=== PATIENT | female | born 1940 | race Caucasian/White ===

== ENCOUNTER 2019-11-22 15:56 | Emergency (ER) | payer MEDICARE, BC ==
--- NOTE | 2019-11-22 16:04 | EDM.PDOC ---
<Dereck Celaya - Last Filed: 11/22/19 17:31> ED HPI GENERAL MEDICAL PROBLEM - General Chief Complaint: General Stated Complaint: FALL/RT SIDE PAIN Time Seen by Provider: 11/22/19 16:04 - History of Present Illness INITIAL COMMENTS - FREE TEXT/NARRATIVE: 79-year-old female, at home ambulated to the bathroom. When sitting down her high-rise adjustment on her stool slid causing her to fall off striking the right lower lateral rib margin on the bathtub. Laid on the floor until family arrived and assisted her up into her chair. She also complains of some mild foot discomfort in the right secondary of this event. She denies striking any other part of her body, no loss of consciousness, no dizziness. Denies any cough. Onset: Today, Sudden Location: Reports: Chest Quality: Reports: Burning, Sharp Right Lower Chest Pain Score (Numeric/FACES): 8 - Related Data Allergies Allergy/AdvReac Type Severity Reaction Status Date / Time ibuprofen [From Motrin] Allergy Cannot Verified 11/22/19 16:03 Remember Penicillins Allergy Cannot Verified 11/22/19 16:03 Remember Home Meds: Home Meds Acetaminophen 650 mg PO Q4H PRN 11/22/19 [History] Methotrexate 17.5 mg PO MO 11/22/19 [History] Oxybutynin Chloride [Oxybutynin Chloride ER] 10 mg PO DAILY 11/22/19 [History] amLODIPine Besylate [Norvasc] 5 mg PO DAILY 11/22/19 [History] Past Medical History Cardiovascular History: Reports: Hypertension Gastrointestinal History: Reports: Chronic Constipation, GERD Genitourinary History: Reports: Urinary Incontinence, Other (See Below) (Overactive bladder) Musculoskeletal History: Reports: RA - Past Surgical History Musculoskeletal Surgical History: Reports: ORIF (Right great toe) Other Musculoskeletal Surgeries/Procedures:: right great toe pinning - Past Imaging History Past Imaging History: Reports: Xray Social & Family History - Family History Family Medical History: Noncontributory ED ROS GENERAL - Review of Systems Review Of Systems: See Below Constitutional: Reports: No Symptoms HEENT: Reports: No Symptoms Respiratory: Reports: No Symptoms Cardiovascular: Reports: No Symptoms Endocrine: Reports: No Symptoms GI/Abdominal: Reports: Constipation : Reports: Frequency, Incontinence Musculoskeletal: Reports: Joint Pain Skin: Reports: No Symptoms Neurological: Reports: No Symptoms Psychiatric: Reports: No Symptoms Hematologic/Lymphatic: Reports: No Symptoms Immunologic: Reports: No Symptoms ED EXAM, GENERAL - Physical Exam Exam: See Below Free Text/Narrative:: Alert oriented, frail-appearing 79-year-old female. HEENT negative discharge or deformity. [place] moist mucous membranes. Neck is soft supple no lymphadenopathy. Thorax is diminished at the bases which is also noted to be guarding secondary of right rib discomfort to palpation of the lower rib margin on the right lateral region. No crackles are noted. Cardiac regular no murmur. Abdomen is soft bowel sounds are present. Trace edema to the right foot with tenderness over the fourth fifth metatarsal region. Left lower extremity is benign. In general there is significant rheumatoid arthritis changes with remodeling to the hands and toes. Departure - Departure Disposition: Home, Self-Care 01 Clinical Impression: Fracture of metatarsal of right foot, closed, Right rib fracture - Discharge Information Instructions: Metatarsal Fracture With Rehab-[facility] Referrals: Joyce Rader NP [Primary Care Provider] - Chema Nava DPM [Ordering Only Provider] - Forms: ED Department Discharge Additional Instructions: 1. Cam walker boot for metatarsal fractures. 2. Tylenol for any pain or discomfort. 3. Follow-up with Dr. Brandy LIN in 1 to 2 weeks. - Problem List & Annotations (1) Fracture of metatarsal bone of right foot SNOMED Code(s): 230926156, 669426009 Code(s): S92.301A - FRACTURE OF UNSP METATARSAL BONE(S), RIGHT FOOT, INIT Status: Acute Priority: High Current Visit: Yes Qualifiers: Encounter type: initial encounter Metatarsal bone: third Fracture type: closed Fracture alignment: nondisplaced Qualified Code(s): S92.334A - Nondisplaced fracture of third metatarsal bone, right foot, initial encounter for closed fracture (2) Rheumatoid arthritis SNOMED Code(s): 01968043 Code(s): M06.9 - RHEUMATOID ARTHRITIS, UNSPECIFIED Status: Chronic Priority: Medium Current Visit: Yes Qualifiers: Rheumatoid arthritis location: unspecified site (3) Ribs, multiple fractures SNOMED Code(s): 7754407 Code(s): S22.49XA - MULTIPLE FRACTURES OF RIBS, UNSP SIDE, INIT FOR CLOS FX Status: Acute Priority: High Current Visit: Yes Qualifiers: Encounter type: initial encounter Laterality: right (4) Fall in home SNOMED Code(s): 68616989 Code(s): W19.XXXA - UNSPECIFIED FALL, INITIAL ENCOUNTER; Y92.009 - UNSP PLACE IN UNSP NON-INSTITUT (PRIVATE) RESIDENCE PLACE Status: Acute Priority: Medium Current Visit: Yes Qualifiers: Encounter type: initial encounter Qualified Code(s): W19.XXXA - Unspecified fall, initial encounter; Y92.009 - Unspecified place in unspecified non- institutional (private) residence as the place of occurrence of the external cause (5) Pulmonary nodule 1 cm or greater in diameter SNOMED Code(s): 570041204 Code(s): R91.1 - SOLITARY PULMONARY NODULE Status: Acute Priority: High Current Visit: Yes Annotation/Comment:: Recommended CT follow-up, noncontrast, further evaluation. <Casey Crain - Last Filed: 11/22/19 18:26> ED HPI GENERAL MEDICAL PROBLEM - General Source of Information: Reports: Patient History Limitations: Reports: No Limitations - History of Present Illness Onset: Today, Sudden Duration: Minutes: Location: Reports: Chest, Lower Extremity, Right Quality: Reports: Burning, Sharp Worsens with: Reports: Movement Context: Reports: Trauma (fall in bathroom) Associated Symptoms: Reports: No Other Symptoms ED EXAM, GENERAL - Physical Exam Exam: See Below General Appearance: Alert, No Apparent Distress, Thin Respiratory/Chest: No Respiratory Distress, Lungs Clear, Normal Breath Sounds, Other ([place] over the right ribs) Cardiovascular: Regular Rate, Rhythm Extremities: Joint Swelling (Deformity and swelling over the joints of the hands due to rheumatoid arthritis), Other (Tenderness over the dorsal aspect the right foot) Neurological: Alert, Oriented, No Motor/Sensory Deficits Psychiatric: Normal Affect, Normal Mood Skin Exam: Warm, Dry, Intact, Normal Color, No Rash Course - Vital Signs Last Recorded V/S: Last Vital Signs Temp 98.4 F 11/22/19 16:03 Pulse 89 11/22/19 16:03 Resp 18 11/22/19 16:03 BP 135/74 11/22/19 16:03 Pulse Ox 96 11/22/19 16:03 - Orders/Labs/Meds Labs: Laboratory Tests 11/22/19 11/22/19 Range/Units 17:05 17:05 WBC 5.02 (5.00-10.00) 10^3/uL RBC 4.08 (3.80-5.50) 10^6/uL Hgb 12.7 (12.0-16.0) g/dL Hct 40.4 (37.0-47.0) % MCV 99.0 H (82.0-92.0) fL MCH 31.1 H (27.0-31.0) pg MCHC 31.4 L (32.0-36.0) g/dL RDW 14.3 (11.5-14.5) % Plt Count 389 (150-400) 10^3/uL MPV 9.1 (7.4-10.4) fL Immature Gran % (Auto) 0.0 (0.0-5.0) % Neut % (Auto) 73.9 H (50.0-70.0) % Lymph % (Auto) 20.5 (20.0-40.0) % [place] % (Auto) 3.6 (2.0-8.0) % Eos % (Auto) 1.8 (1.0-3.0) % Baso % (Auto) 0.2 (0.0-1.0) % Neut # (Auto) 3.71 (2.50-7.00) 10^3/uL Lymph # (Auto) 1.03 (1.00-4.00) 10^3/uL [place] # (Auto) 0.18 (0.10-0.80) 10^3/uL Eos # (Auto) 0.09 L (0.10-0.30) 10^3/uL Baso # (Auto) 0.01 (0.00-0.10) 10^3/uL Immature Gran # (Auto) 0.00 (0.00-0.50) 10^3/uL Sodium 139 (136-145) mmol/L Potassium 3.7 (3.3-5.3) mmol/L Chloride 104 (98-115) mmol/L Carbon Dioxide 24.4 (21.0-32.0) mmol/L Anion Gap 14.3 (5-15) mmol/L BUN 15 (6-25) mg/dL Creatinine 0.70 (0.51-1.17) mg/dL Est Cr Clr Drug Dosing 41.53 mL/min Estimated GFR (MDRD) > 60 mL/min Glucose 148 H (75 - 99) mg/dL Calcium 9.1 (8.7-10.3) mg/dL Total Bilirubin 0.6 (0.2-1.0) mg/dL AST 30 (15-37) U/L ALT 21 (12-78) U/L Alkaline Phosphatase 71 (46-116) IU/L Total Protein 8.2 (6.4-8.2) g/dL Albumin 4.09 (3.00-4.80) g/dL - Radiology Interpretation Free Text/Narrative:: X-ray right foot 2 views Discussion/impression: Acute fractures of the third through the fifth metatarsals. First MTP arthr odesis. Osteoarthritis throughout the foot. Bones demonstrate diffusely advanced demineralization. Probable chronic fracture of the first metatarsal without evidence of acute fracture. xray: ribs right with PA chest Discussion/impression: Multiple nodular opacities project over the lungs. Bilateral symmetric appearing opacities projecting over the lung bases is consistent with nipple artifact. However a 10 mm nodular opacity in the right midlung is more consistent with a possible pulmonary nodule. Noncontrast chest CT is recommended for further evaluation. Lungs demonstrate bilateral symmetric hyperinflation, nonspecific but commonly seen in sequela COPD Acute slightly displaced fractures of the ninth and 10th ribs right Departure - Departure Time of Disposition: 18:26 Condition: Good Sepsis Event Note (ED) - Focused Exam Vital Signs: Vital Signs Temp Pulse Resp BP Pulse Ox 11/22/19 16:03 98.4 F 89 18 135/74 96 - Assessment/Plan Assessment:: 1. Metatarsal fractures right second, third, fourth. 2. Right 9th,10th rib fracture Plan: 1. Cam walker boot for metatarsal fractures. 2. Tylenol for any pain or discomfort. 3. Follow-up with Dr. Brandy LIN in 1 to 2 weeks.
--- NOTE | 2019-11-22 16:41 | CR ---
[id number] RAD/RAD Ribs Right W PA Chest Exam: RAD Ribs Right W PA Chest Indication:PAIN. Comparison: No prior imaging for comparison. Discussion/Impression: Multiple nodular opacities project over the lungs. Bilateral symmetric appearing opacities projecting over the lung bases is consistent with nipple artifact. However, 10 mm nodular opacity in the right midlung is more consistent with possible pulmonary nodule. Noncontrast chest CT is recommended for further evaluation. Lungs demonstrate bilateral symmetric hyperinflation, nonspecific but commonly seen as sequela of COPD. Acute slightly displaced fractures of the ninth and 10th ribs. Casey Rivera MD 11/22/19 1640 Thank you for allowing us to participate in the care of your patient.
--- NOTE | 2019-11-22 16:43 | CR ---
[id number] RAD/RAD Foot Right 2V Exam: RAD Foot Right 2V Indication:FOOT PAIN, SWELLING. Comparison: No prior imaging for comparison. Discussion/Impression: Acute fractures of the third through fifth metatarsals. Bowed appearance of the first metatarsal without evidence of an acute fracture. Findings are likely a chronic healed fracture. First MTP arthrodesis. 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 Deformity of the second through fifth metatarsal heads, chronic induration and of uncertain etiology. Bones demonstrate diffusely advanced demineralization. Casey Rivera MD 11/22/19 5543 Thank you for allowing us to participate in the care of your patient.
[2019-11-22 17:34] LABS: ANION GAP 14.3 mmol/L (5-15); CHLORIDE,CL 104 mmol/L (98-115); SODIUM,NA 139 mmol/L (136-145)
== END 2019-11-22 18:55 | disposition home or self-care (01) ==
LOC: KA.ED 15:56
DX: S92.331A Displaced fracture of third metatarsal bone, right foot, initial encounter for closed fracture (principal); S92.341A Displaced fracture of fourth metatarsal bone, right foot, initial encounter for closed fracture; S92.351A Displaced fracture of fifth metatarsal bone, right foot, initial encounter for closed fracture; S22.31XA Fracture of one rib, right side, initial encounter for closed fracture; I10 Essential (primary) hypertension; Z88.6 Allergy status to analgesic agent; Z88.0 Allergy status to penicillin; Z79.899 Other long term (current) drug therapy; W22.8XXA Striking against or struck by other objects, initial encounter; Y92.009 Unspecified place in unspecified non-institutional (private) residence as the place of occurrence of the external cause
CPT/HCPCS: 36415; 71101-RT; 73620-RT; 80053; 85025; 99283-25

== ENCOUNTER 2022-01-29 20:15 | Emergency (ER) | payer MEDICARE, BC ==
[2022-01-29] MEDS ORDERED: Sodium Chloride 0.9% 10 ML Syringe FLUSH PRN (20:25)
[2022-01-29 21:12] LABS: ANION GAP 15.4 mmol/L (5-15)
[2022-01-29 21:34] LABS: RESPIRATORY SYNCYTIAL VIR NAA NEGATIVE (NEGATIVE)
[2022-01-29 21:35] LABS: CORONAVIRUS COVID-19 NAA NEGATIVE (NEGATIVE)
[2022-01-29] MEDS ORDERED: Potassium Chloride 10 MEQ Tab.ER PO ONE (21:58)
== END 2022-01-29 22:15 ==
LOC: SUPCPDRO 20:15 → KA.ED 20:15
DX: E87.6 Hypokalemia (principal); R05.1 Acute cough; I10 Essential (primary) hypertension; Z88.6 Allergy status to analgesic agent; Z88.0 Allergy status to penicillin; Z79.899 Other long term (current) drug therapy; Z20.822 Contact with and (suspected) exposure to COVID-19
CPT/HCPCS: 0241U; 71045; 80053; 81001; 83880; 84484; 85025; 87040; 99284; A9270; J3490; 93005; 93010

== ENCOUNTER 2022-01-30 11:51 | Inpatient (IN) | payer MEDICARE, BC ==
[2022-01-30 12:28] LABS: ANION GAP 15.1 mmol/L (5-15)
[2022-01-30 12:49] LABS: RESPIRATORY SYNCYTIAL VIR NAA POSITIVE (NEGATIVE)
[2022-01-30 12:51] LABS: CORONAVIRUS COVID-19 NAA NEGATIVE (NEGATIVE)
[2022-01-30] MEDS ORDERED: Calcium Carbonate 500 MG Tab.Chew PO PRN (15:24)
[2022-01-30] MEDS ORDERED: Potassium Chloride 10 MEQ Tab.ER PO ONE (15:24)
[2022-01-30] MEDS ORDERED: Magnesium Hydroxide 400 MG/5 ML Susp 30 ML Cup PO PRN (15:24)
[2022-01-30] MEDS ORDERED: Acetaminophen 650 MG Supp RECTAL PRN (16:09)
[2022-01-30] MEDS ORDERED: NS + KCl 20mEq/L 1,000 ML IV SCH (18:15)
[2022-01-30] MEDS: Oxybutynin 5 MG Tab.ER PO SCH (21:30)
[2022-01-30] MEDS: Acetaminophen 325 MG Tab PO PRN (21:30)
[2022-01-31] MEDS: Acetaminophen 325 MG Tab PO PRN ×4 (01:20→17:14)
[2022-01-31 07:40] LABS: ANION GAP 14.1 mmol/L (5-15)
[2022-01-31] MEDS: Sodium Chloride 0.9% 10 ML Syringe FLUSH PRN (08:25)
[2022-01-31] MEDS: Cholecalciferol (Vitamin D3) 25 MCG Tab PO SCH (08:25)
[2022-01-31] MEDS: Folic Acid 1 MG Tab PO SCH (08:25)
[2022-01-31] MEDS: amLODIPine 5 MG Tab PO SCH (08:25)
[2022-01-31] MEDS: metroNIDAZOLE/Normal Saline 500 MG in Premix Bag 1 BAG IV SCH (13:24)
[2022-01-31] MEDS: Levofloxacin/Dextrose 5%-Water 750 MG in Premix Bag 1 BAG IV SCH (13:31)
[2022-01-31] MEDS ORDERED: Enoxaparin 40 MG/0.4 ML Syringe SUBCUT SCH (14:00)
[2022-01-31] MEDS ORDERED: Sodium Chloride 0.9% 250 ML IV SCH (14:45)
[2022-01-31] MEDS: guaiFENesin 100 MG/5 ML Soln 5 ML UD Cup PO PRN (14:49)
[2022-01-31] MEDS ORDERED: Sodium Chloride 0.9% 1,000 ML IV SCH ×2 (18:54→20:30)
[2022-01-31] MEDS ORDERED: Metoprolol Tartrate 5 MG/5 ML SDV IVPUSH ONE (20:44)
[2022-01-31 21:05] LABS: BASE EXCESS ARTERIAL -3 mmol/L (-2-3); BICARBONATE,ARTERIAL 20.7 mmol/L (22-26); O2 DELIVERY DEVICE HI FLOW NASAL CANNU; O2 SATURATION ARTERIAL 94 % (95-98); PCO2 ARTERIAL 32 mmHG (35-45); PO2 ARTERIAL 69 mmHG (80-105)
[2022-01-31] MEDS ORDERED: Magnesium Sulfate/Water 2 GM in Premix Bag 1 BAG IV ONE (21:37)
[2022-01-31] MEDS ORDERED: Potassium Chloride 10 MEQ Tab.ER PO ONE (21:46)
[2022-01-31] MEDS: Oxybutynin 5 MG Tab.ER PO SCH (22:41)
[2022-02-01] MEDS: metroNIDAZOLE/Normal Saline 500 MG in Premix Bag 1 BAG IV SCH ×4 (01:48→23:32)
[2022-02-01 07:40] LABS: ANION GAP 14.6 mmol/L (5-15)
[2022-02-01] MEDS: Folic Acid 1 MG Tab PO SCH (08:20)
[2022-02-01] MEDS: amLODIPine 5 MG Tab PO SCH (08:20)
[2022-02-01] MEDS: Cholecalciferol (Vitamin D3) 25 MCG Tab PO SCH (08:20)
[2022-02-01] MEDS: Acetaminophen 325 MG Tab PO SCH ×2 (11:35→13:39)
[2022-02-01] MEDS: Apixaban 5 MG Tab PO SCH ×2 (12:01→20:42)
[2022-02-01] MEDS: guaiFENesin 100 MG/5 ML Soln 5 ML UD Cup PO PRN ×2 (16:06→21:03)
[2022-02-01] MEDS: Metoprolol Succinate 25 MG Tab.ER PO SCH (17:24)
[2022-02-01] MEDS: Acetaminophen 650 MG Tab.ER PO SCH (20:42)
[2022-02-01] MEDS: Oxybutynin 5 MG Tab.ER PO SCH (20:42)
[2022-02-01] MEDS ORDERED: Metoprolol Tartrate 5 MG/5 ML SDV IVPUSH ONE (22:08)
[2022-02-02] MEDS: metroNIDAZOLE/Normal Saline 500 MG in Premix Bag 1 BAG IV SCH ×2 (07:39→15:14)
[2022-02-02] MEDS: Acetaminophen 650 MG Tab.ER PO SCH ×3 (08:02→21:24)
[2022-02-02] MEDS: Folic Acid 1 MG Tab PO SCH (08:03)
[2022-02-02] MEDS: Apixaban 5 MG Tab PO SCH ×2 (08:03→21:22)
[2022-02-02] MEDS: Cholecalciferol (Vitamin D3) 25 MCG Tab PO SCH (08:03)
[2022-02-02] MEDS: Metoprolol Succinate 25 MG Tab.ER PO SCH (08:04)
[2022-02-02] MEDS: amLODIPine 5 MG Tab PO SCH (08:10)
[2022-02-02 09:43] LABS: ANION GAP 12.8 mmol/L (5-15)
[2022-02-02] MEDS: Magnesium Oxide 500 MG Tab PO SCH (13:00)
[2022-02-02] MEDS: Levofloxacin/Dextrose 5%-Water 750 MG in Premix Bag 1 BAG IV SCH (13:01)
[2022-02-02] MEDS: Oxybutynin 5 MG Tab.ER PO SCH (21:22)
[2022-02-02] MEDS: Sodium Chloride 0.9% 10 ML Syringe FLUSH PRN (21:24)
[2022-02-03] MEDS: Sodium Chloride 0.9% 10 ML Syringe FLUSH PRN (01:00)
[2022-02-03] MEDS: metroNIDAZOLE/Normal Saline 500 MG in Premix Bag 1 BAG IV SCH ×2 (01:00→07:27)
[2022-02-03 07:46] LABS: ANION GAP 9.8 mmol/L (5-15)
[2022-02-03] MEDS: Acetaminophen 650 MG Tab.ER PO SCH (09:03)
[2022-02-03] MEDS: Cholecalciferol (Vitamin D3) 25 MCG Tab PO SCH (09:04)
[2022-02-03] MEDS: Folic Acid 1 MG Tab PO SCH (09:04)
[2022-02-03] MEDS: Magnesium Oxide 500 MG Tab PO SCH (09:05)
[2022-02-03] MEDS: amLODIPine 5 MG Tab PO SCH (09:11)
[2022-02-03] MEDS: Apixaban 5 MG Tab PO SCH (09:12)
[2022-02-03] MEDS: Metoprolol Succinate 25 MG Tab.ER PO SCH (09:12)
[2022-02-03] MEDS ORDERED: Potassium Chloride 10 MEQ Tab.ER PO ONE (10:15)
[2022-02-03 12:23] VITALS: BP 136/68; PULSE 94
[2022-02-03] MEDS ORDERED: metroNIDAZOLE 500 MG Tab PO SCH (14:00)
[2022-02-04] MEDS ORDERED: Levofloxacin 500 MG Tab PO SCH (09:00)
== END 2022-02-03 12:40 | DRG 871 ==
LOC: KA.ED 11:51 → KA.MS 13:12 → OBSVTOIN 01-31 12:39 → KA.MS 02-01 13:45 → UNDODISIN 02-03 12:40
PROVIDERS: ADMIT Family Medicine; ATTEND Family Medicine
DX: J12.1 Respiratory syncytial virus pneumonia (principal); R09.02 Hypoxemia; Z99.81 Dependence on supplemental oxygen; E87.6 Hypokalemia; I10 Essential (primary) hypertension; A41.9 Sepsis, unspecified organism; I21.4 Non-ST elevation (NSTEMI) myocardial infarction; J69.0 Pneumonitis due to inhalation of food and vomit; J96.01 Acute respiratory failure with hypoxia; E87.1 Hypo-osmolality and hyponatremia; Z88.8 Allergy status to other drugs, medicaments and biological substances; I50.32 Chronic diastolic (congestive) heart failure; Z66 Do not resuscitate; R79.89 Other specified abnormal findings of blood chemistry; I48.0 Paroxysmal atrial fibrillation; B97.4 Respiratory syncytial virus as the cause of diseases classified elsewhere; E83.42 Hypomagnesemia; H54.7 Unspecified visual loss; K59.09 Other constipation; E55.9 Vitamin D deficiency, unspecified; Z96.642 Presence of left artificial hip joint; I11.0 Hypertensive heart disease with heart failure; I08.1 Rheumatic disorders of both mitral and tricuspid valves; Z20.822 Contact with and (suspected) exposure to COVID-19; M06.9 Rheumatoid arthritis, unspecified; N32.81 Overactive bladder; K21.9 Gastro-esophageal reflux disease without esophagitis; K59.00 Constipation, unspecified; M81.0 Age-related osteoporosis without current pathological fracture; Z79.01 Long term (current) use of anticoagulants; Z79.899 Other long term (current) drug therapy; Z88.6 Allergy status to analgesic agent; Z88.0 Allergy status to penicillin; Z86.19 Personal history of other infectious and parasitic diseases; Z90.49 Acquired absence of other specified parts of digestive tract; Z98.51 Tubal ligation status; Z87.891 Personal history of nicotine dependence
CPT/HCPCS: 0241U; 36415; 36600; 71045; 80048; 80053; 80202; 81001; 82803; 83605; 83735; 83880; 84484; 85025; 86140; 87040; 87070; 87205; 93005; 93010; 99284; 99285; A9270-GY; G0378; J1650; J1956; J3370; J3475; J3480; J3490; J7030; J7050

== ENCOUNTER 2022-06-07 15:00 | Emergency (ER) | payer MEDICARE, BC ==
[2022-06-07 16:15] LABS: ANION GAP 16.5 mmol/L (5-15)
[2022-06-07] MEDS: Sodium Chloride 0.9% 1,000 ML IV SCH (16:28)
[2022-06-07] MEDS: Sodium Chloride 0.9% 1,000 ML ONE (18:03)
[2022-06-07] MEDS: Acetaminophen/HYDROcodone 325-5 MG Tab PO ONE (19:30)
== END 2022-06-07 19:30 ==
LOC: KA.ED 15:00
DX: S81.812A Laceration without foreign body, left lower leg, initial encounter (principal); R06.02 Shortness of breath; R09.02 Hypoxemia; I50.9 Heart failure, unspecified; R19.5 Other fecal abnormalities; Z88.6 Allergy status to analgesic agent; Z88.0 Allergy status to penicillin; Z79.899 Other long term (current) drug therapy; Z79.01 Long term (current) use of anticoagulants; Z90.49 Acquired absence of other specified parts of digestive tract; Z20.822 Contact with and (suspected) exposure to COVID-19; W19.XXXA Unspecified fall, initial encounter
CPT/HCPCS: 36415; 71045; 80053; 82270; 83605; 83880; 84484; 85025; 87040; 87186; 93005; 93010; 96360; 96361; 99284; 99285-25; A9270-GY; J7030